=== PATIENT | female | born 1960 | race African-American/Black ===

== ENCOUNTER 2020-10-16 10:27 | Outpatient (REF) | payer OTHER, SELFPAY ==
--- NOTE | ~2020-10-16 | US_ITS ---
EXAMINATION: ULTRASOUND PELVIS AND TRANSVAGINAL CLINICAL INFORMATION: Lower abdominal pain and cramping. COMPARISON: None TECHNIQUE: Transabdominal and transvaginal imaging of pelvis is performed. FINDINGS: The uterus is anteverted and anteflexed measuring 5.2 cm in length, 2.5 cm in AP and 4.0 cm in transverse dimension. The uterus is slightly heterogenous but no focal lesion seen. The endometrial thickness is 0.4 cm. There is small anechoic cyst within the endometrial canal. Small nabothian anechoic cysts are seen in cervix. The right ovary measures 2.2 x 1.0 x 1.6 cm and volume 1.8 mL and appears unremarkable. Previously right ovary measured 0.9 x 1.0 x 1.4 cm. The left ovary is not seen. There is small amount of free fluid in the cul-de-sac. US/US pelvic and transvaginal IMPRESSION: Small nabothian cyst is seen in the cervix. Heterogenous appearance of uterus with minimal fluid in the endometrial canal. The right ovary is unremarkable. The left ovary is not seen.
== END 2020-10-16 10:28 | disposition home or self-care (01) ==
LOC: HO.US 10:27
PROVIDERS: Visit Provider Internal Medicine
DX: R10.30 Lower abdominal pain, unspecified (principal)
CPT/HCPCS: 76830; 76856

== ENCOUNTER 2020-11-01 08:32 | Outpatient (REF) | payer OTHER, SELFPAY ==
--- NOTE | ~2020-11-01 | XR_ITS ---
EXAMINATION: XR FOOT, LEFT CLINICAL INFORMATION: Pain left foot COMPARISON: None TECHNIQUE: AP, lateral, and oblique views of the left foot. FINDINGS: There is no visible acute fracture, dislocation subluxation. The MTP, IP and TMT joints are normal. No bony erosive changes. The ankle mortise and subtalar joints are normal. Small retrocalcaneal and calcaneal heel enthesophytes are seen. XR/XR foot LT min 3V IMPRESSION: Small calcaneal heel and retro calcaneal enthesophytes. No visible acute fracture, dislocation or subluxation seen.
--- NOTE | ~2020-11-01 | XR_ITS ---
EXAMINATION: XR CHEST CLINICAL INFORMATION: Cough COMPARISON: Previous chest x-ray June 2018 TECHNIQUE: 2 views of the chest were obtained. FINDINGS: The cardiac and mediastinal contours are stable. The lungs are clear. There is no pleural effusion or pneumothorax. There are degenerative changes of the spine. XR/XR chest 2V IMPRESSION: Unremarkable examination.
== END 2020-11-01 08:33 | disposition home or self-care (01) ==
LOC: HO.XRAY 08:32
PROVIDERS: PCP Internal Medicine; Visit Provider Internal Medicine
DX: R05 Cough (principal); M79.672 Pain in left foot
CPT/HCPCS: 71046; 73630

== ENCOUNTER 2021-03-14 08:18 | Outpatient (REF) | payer OTHER, SELFPAY ==
--- NOTE | ~2021-03-14 | US_ITS ---
EXAMINATION: US ABDOMEN COMPLETE CLINICAL INFORMATION: Left lower quadrant pain. COMPARISON: X-ray abdomen 03/05/2018. TECHNIQUE: Real-time imaging of the abdominal viscera. FINDINGS: PANCREAS: The pancreas appears atrophic and is only partially visualized due to shadowing from overlying bowel gas. ABDOMINAL AORTA: The proximal, mid, and distal segments are normal in caliber. INFERIOR VENA CAVA: Visualized portions are normal. LIVER: Mildly increased echogenicity of the liver parenchyma with questionable nodularity of the liver contour. There is an equivocal hyperechoic lesion in the left hepatic lobe measuring 9 mm (image 10/92, series 1). No biliary ductal dilatation. GALLBLADDER: The gallbladder is physiologically distended without evidence of stones, sludge, polyps, wall thickening or pericholecystic fluid. COMMON BILE DUCT: Normal in caliber measuring 0.3 cm in diameter. RIGHT KIDNEY: Normal. No hydronephrosis. No renal calculi or focal parenchymal lesions. The kidney measures 9.5 cm in maximum dimension. LEFT KIDNEY: Normal. No hydronephrosis. No renal calculi or focal parenchymal lesions. The kidney measures 10.6 cm in maximum dimension. SPLEEN: Normal. The spleen measures 7.1 cm in maximum dimension. FREE FLUID: None. ADDITIONAL FINDINGS: Additional images were obtained in the left lower quadrant in the area of clinical concern without evidence of acute sonographic abnormalities. US/US abdomen complete IMPRESSION: Increased hepatic echogenicity with questionable nodularity of the liver contour suggesting the presence of hepatic steatosis and/or hepatocellular disease. Question the presence of a hyperechoic lesion in the left hepatic lobe which could be artifactual and related with the imaging plane and technique. Alternatively, a hemangioma could appear similarly. For the above findings, recommend further evaluation with a dynamic liver CT or MR.
== END 2021-03-14 08:19 | disposition home or self-care (01) ==
LOC: HO.US 08:18
PROVIDERS: Visit Provider Internal Medicine
DX: R10.32 Left lower quadrant pain (principal)
CPT/HCPCS: 76700

== ENCOUNTER 2021-04-13 08:27 | Outpatient (REF) | payer OTHER, SELFPAY ==
--- NOTE | ~2021-04-13 | MR_ITS ---
EXAMINATION: MR ABDOMEN WITHOUT AND WITH CONTRAST CLINICAL INFORMATION: Follow up liver lesion seen on ultrasound. COMPARISON: Abdominal ultrasound 03/14/2021 TECHNIQUE: MR abdomen was performed without and with use of 10 mL intravenous Gadavist gadolinium contrast. Postcontrast images are performed in multiphase dynamic sequences. Imaging was performed in 3 planes. FINDINGS: LUNG BASES: The visualized lung bases are unremarkable. LIVER, GALLBLADDER, AND BILIARY TREE: The liver is normal in size, smooth in contour, and normal in signal. No focal hepatic lesion or biliary ductal dilatation is present. The gallbladder is unremarkable with no evidence of gallbladder wall thickening, or obvious pericholecystic inflammatory changes. PANCREAS: Unremarkable. SPLEEN: Normal. ADRENAL GLANDS: Normal. KIDNEYS AND URETERS: The kidneys are normal in size, shape, and enhance symmetrically. No hydronephrosis. No perinephric stranding. GASTROINTESTINAL TRACT: No bowel obstruction. No ascites or fluid collection. ABDOMINAL WALL: There is an umbilical hernia containing fat. LYMPH NODES: No lymphadenopathy. VASCULAR: Unremarkable. OSSEOUS STRUCTURES: Marrow signal normal. MR/MR abdomen wo/w con IMPRESSION: Normal-appearing liver. No liver lesion seen.
== END 2021-04-13 08:28 | disposition home or self-care (01) ==
LOC: HO.MRI 08:27
PROVIDERS: Visit Provider Internal Medicine
DX: K76.89 Other specified diseases of liver (principal)
CPT/HCPCS: 74183; A9585

== ENCOUNTER → 2021-12-05 10:37 | Outpatient (BNVA) | payer MEDICAID, SELFPAY | PROVIDERS: PCP Internal Medicine; Referring Provider Internal Medicine; Visit Provider Internal Medicine Cardiovascular Disease | DX: R07.9 Chest pain, unspecified (principal); R94.31 Abnormal electrocardiogram [ECG] [EKG] | CPT/HCPCS: 93005; 99202 ==

== ENCOUNTER → 2021-12-20 08:46 | Outpatient (REF) | payer MEDICAID, SELFPAY ==
--- NOTE | ~2021-12-20 | NM_ITS ---
EXERCISE MYOCARDIAL PERFUSION STUDY INDICATION: Chest pain, assess for coronary disease and ischemia TECHNIQUE: The patient was brought in for an exercise perfusion study on 12/20/2021. Patient performed exercise as per Jon protocol and was injected 30 mCi of sestamibi once target heart rate was achieved. Images were obtained using the SPECT gamma camera interlaced with the gating device. Images were obtained in supine position. Resting perfusion study was performed on 12/21/2021. Patient was administered 30 mCi of sestamibi intravenously at rest. Images were then obtained in supine position. Total DLP 91mGy-cm. Images were processed with the software and compared side to side in short axis, horizontal long axis and vertical long axis views. FINDINGS: Raw images were reviewed. The stress perfusion study showed no significant perfusion abnormality. Both uncorrected as well as CT attenuation corrected images were reviewed. The gated study shows normal LV systolic function with calculated LVEF of 67%. LV cavity is normal in size. The gated study shows normal wall thickening and contraction of segments. Resting study shows diminished tracer uptake along the inferior wall. There is improvement with CT attenuation correction suggestive of diaphragmatic attenuation artifact. Gating at rest reveals normal wall motion with ejection fraction at 55%. The findings are consistent with no definite reversible or fixed perfusion defects. TN/TN cardiolite stress test IMPRESSION: 1. Myocardial perfusion imaging study shows likely normal myocardial perfusion. 2. Gated LVEF is 67% during stress and 55% during rest. 3. Transient ischemic dilatation not present. EKG component of the test reported separately.
--- NOTE | 2021-12-20 08:51 | CA_ITS ---
Acquisition Time: 2021-12-20 09:41:50 Total Exercise Time: 00:05:00 Test Indications: CP Medications: Protocol: MAXINE Max HR: 144 BPM 90% of Pred: 160 BPM Max BP: 146/078 mmHG Max Work Load: 7.0 METS Exercise stress test with exercise 5 min of Maxine protocol, achieving 90% MPHR, 7 METs with mild sob, no chest discomfort, without arrythmia during exercise with sinus arrythmia noted in recovery, with normotensive response to exercise, without EKG changes meeting criteria for ischemia. Nuclear images pending. Test reviewed with Dr Ramirez Referred By: Joe Lyman Overread By: NATHANIEL CRUZ
== END ==
LOC: HO.CARD 08:46
PROVIDERS: PCP Internal Medicine; Visit Provider Internal Medicine Cardiovascular Disease
DX: R07.9 Chest pain, unspecified (principal)
CPT/HCPCS: 78452; 93017; A9500

== ENCOUNTER → 2021-12-31 13:24 | Outpatient (REF) | payer MEDICAID, SELFPAY ==
--- NOTE | 2021-12-31 13:28 | CA_ITS ---
Transthoracic Echocardiogram Patient (Last, First, Middle): Magali Milner, Gender: Female Date of : 1960 Age: 61 Procedure Date: 12/31/2021 Procedure Type: Transthoracic Echocardiogram Location: OP Height: 170.18 cm Weight: 90.72 kg BSA: 2.02 m2 Heart Rate: 67 bpm BP: 122 / 68 mmHg Gas Analyst: MIAN Referring MD: Joe Lyman MD Record Press Supervisor: Joe Lyman MD Symptoms: R07.9 - Chest pain, unspecified Study Quality: Adequate-low parasternal window ECG Rhythm: Sinus Conclusions: - Normal left ventricular size, thickness, systolic function, and wall motion. The visually estimated ejection fraction is between 55-60%. Diastolic function is normal for age. - Normal right ventricular cavity size and systolic function. Findings Left Ventricle Normal left ventricular size, thickness, systolic function, and wall motion. The visually estimated ejection fraction is between 55-60%. Diastolic function is normal for age. Right Ventricle Normal right ventricular cavity size and systolic function. Atria Both atria are normal in size. Aortic Valve Normal aortic valve structure and function. There is no aortic valve stenosis. There is no aortic valve regurgitation. Mitral Valve Normal mitral valve structure and function. There is no mitral valve regurgitation. There is no mitral valve stenosis. Pulmonic Valve The pulmonic valve is likely normal. Tricuspid Valve Normal tricuspid valve structure and function. There is trace tricuspid valve regurgitation. Tricuspid regurgitation envelope is inadequate for calculation of right ventricular systolic pressure. Normal right atrial pressure. Great Vessels All visible segments of the aorta are normal in size. The visualized portions of the pulmonary artery and branches are normal. Venous The inferior vena cava is normal in size and collapses greater than 50% with inspiration. Pericardium/Pleural There is no evidence of pericardial effusion. Prior Study Comparison No prior study available for comparison. Measurements 2D Linear Measurements IVSd: 0.65 0.6-0.9/0.6-1.0 cm LVIDd: 4.85 3.9-5.3/4.2-5.9 cm LVIDd Index: 2.40 2.4-3.2/2.2-3.1 cm/m2 LVIDs: 3.60 2.0-3.6 cm LVPWd: 0.58 0.7-1.1 cm LA Diam: 3.10 2.7-3.8/3.0-4.0 cm LAIDs Index: 1.53 1.5-2.3 cm/m2 LV Mass: 115.21 67-162/88-224 g LV Mass Index: 57.04 43-95/49-115 g/m2 LVOT Diam: 2.40 3.0+(-)1.3 cm 2D Systolic Function EF 4C: 63.30 >55% EF 2C: 58.60 >55% EF BiP: 61.00 >55% Mitral Valve MV Pk E: 0.94 MV PK A: 0.79 MV Decel Time: 165.00 E/A: 1.20 E'Lateral: 8.49 E'Medial: 8.81 E/E' Med: 10.60 E/E' Lat: 11.00 PHT: 48.00 MVA PHT: 4.58 Decel [place]: 5.66 Aortic Valve AoV Pk Vince: 1.35 AoV Mn Vince: 0.94 AoV VTI: 0.29 AoV Pk Grad: 7.00 Aov Mn Grad: 4.00 MARK Cont.VTI: 3.35 LVOT LVOT Pk Vince: 1.07 LVOT Mn Vince: 0.71 LVOT VTI: 0.22 LVOT Pk Grad: 5.00 LVOT Mn Grad: 3.00 LVOT Diam: 2.40 LVOT Area: 4.52 Diastolic Function MV Pk E: 0.94 MV Pk A: 0.79 E/A: 1.20 E'Medial: 8.81 E/E' Med: 10.60 E' Laterial: 8.49 E/E' Lat: 11.00 Right Ventricle TAPSE (mm): 22.40 TVS' Vince: 12.60 Tricuspid Valve RA Press: 3.00 Great Vessels Aorta Sinus of Valsalva: 3.40 2.0-3.5 cm Ao Asc: 3.10 2.1-3.4 cm Pulmonary Veins Pulm Vein S/D 2.00 Pulmonary Valve PV Pk Vince: 0.92 Peak PV Grad: 3.00 Updated in Other Vendor System with Status of Final Joe Lyman MD electronically signed on 01/02/2022 12:35:01 PM with status of Final
== END ==
LOC: HO.CARD 13:24
PROVIDERS: Visit Provider Internal Medicine Cardiovascular Disease
DX: R07.9 Chest pain, unspecified (principal)
CPT/HCPCS: 93306

== ENCOUNTER → 2022-03-13 15:41 | Outpatient (BNVA) | payer MEDICAID, SELFPAY | PROVIDERS: PCP Internal Medicine; Referring Provider Internal Medicine; Visit Provider Internal Medicine Cardiovascular Disease | DX: R07.9 Chest pain, unspecified (principal); R94.31 Abnormal electrocardiogram [ECG] [EKG] | CPT/HCPCS: 99212 ==

== ENCOUNTER 2022-03-25 15:56 | Outpatient (REF) | payer MEDICAID, SELFPAY ==
--- NOTE | ~2022-03-25 | MM_ITS ---
EXAMINATION: MM SCREENING DIGITAL BREAST TOMOSYNTHESIS, BILATERAL CLINICAL INFORMATION: Screening. Asymptomatic. COMPARISON: Mammography: 03/05/2018, 11/05/2016 TECHNIQUE: Digital breast tomosynthesis is performed in both the craniocaudal and mediolateral oblique views along with computer-aided detection (CAD). Synthesized 2D images are generated from the tomosynthesis. FINDINGS: There are scattered areas of fibroglandular density (ACR BI-RADS breast composition Category b). There are no significant masses, abnormal calcifications, or other abnormalities. Breast tissue composition borders on predominantly fatty. Background stromal and fibroglandular densities are stable. The axilla and skin contours are unremarkable. MM/MM tomosynthesis screening BI IMPRESSION: No mammographic evidence of malignancy. ASSESSMENT: BI-RADS 1: Negative RECOMMENDATION: Routine annual mammography screening. This patient's information was entered into a reminder system with a target due date for their next mammogram.
== END 2022-03-25 15:57 | disposition home or self-care (01) ==
LOC: HO.MAMMO 15:56
PROVIDERS: PCP Internal Medicine; Visit Provider Internal Medicine
DX: Z12.31 Encounter for screening mammogram for malignant neoplasm of breast (principal)
CPT/HCPCS: 77063; 77067

== ENCOUNTER 2022-10-15 12:51 | Outpatient (REF) | payer MEDICAID, SELFPAY ==
--- NOTE | ~2022-10-15 | US_ITS ---
EXAMINATION: US PELVIS CLINICAL INFORMATION: Lower abdominal pain; cervical cyst; postmenopausal patient. COMPARISON: Pelvic ultrasound dated 10/16/2020. TECHNIQUE: Ultrasound of the pelvis is performed using both transabdominal and transvaginal transducers along with Doppler. Transvaginal imaging is performed due to inadequate visualization transabdominally. FINDINGS: Uterus: The uterus is retroverted and measures 5.7 x 2.7 x 3.9 cm. The double wall endometrial thickness is 0.4 mm. The myometrium is heterogeneous. The uterus is smooth in contour and has normal myometrial echogenicity. No visible fibroid. Adnexa: No adnexal mass is seen. There is normal color flow to the adnexa. torsion. There is no pelvic ascites or fluid collection. Right ovary measures 3.4 x 1.0 x 1.7 cm, volume 2.9 mL. Left ovary is not visualized. US/US pelvic and transvaginal IMPRESSION: The left ovary is not visualized. The examination is otherwise unremarkable.
== END 2022-10-15 12:52 | disposition home or self-care (01) ==
LOC: HO.HMGCX 12:51
PROVIDERS: PCP Internal Medicine; Visit Provider Registered Nurse
DX: R10.30 Lower abdominal pain, unspecified (principal)
CPT/HCPCS: 76830; 76856

== ENCOUNTER 2023-03-13 14:06 | Outpatient (REF) | payer MEDICAID, SELFPAY ==
[2023-03-13 14:52] LABS: MANUAL DIFF FLAG NO
[2023-03-13 15:35] LABS: Basophils Percent Auto 0.7 % (0-2); Eosinophils Absolute Auto 0.1 X10*3/uL (0.0-0.4); Imm Gran Abs Auto 0.01 X10*3/uL (0.00-0.03); Imm Gran Pct Auto 0.2 % (0.0-0.4); Lymphocytes Absolute Auto 1.6 X10*3/uL (1.2-4.9); Lymphocytes Percent Auto 28.1 % (20-40); Mean Corpuscular HGB Conc 33.3 g/dl (31.0-35.0); Mean Corpuscular Hemoglobin 28.2 pg (27.0-33.0); Mean Corpuscular Volume 84.5 fL (80.0-98.0); Mean Platelet Volume 10.4 fL (9.4-12.3); Monocytes Absolute Auto 0.6 X10*3/uL (0.1-1.2); Monocytes Percent Auto 10.3 % (2-11); Neutrophils Absolute Auto 3.3 x10*3/uL (2.0-8.3); Neutrophils Percent Auto 58.7 % (45-73); Platelet Count 367 X10*3/uL (160-400); Red Blood Count 4.97 X10*6/uL (4.20-5.50); Red Cell Distribution Width 13.7 % (11.0-16.0); White Blood Count 5.6 X10*3/uL (4.8-10.8)
[2023-03-15 23:02] LABS: TS Negative Control Passed; TS Panel A 3; TS Panel B 1; TS Positive Control Passed; TSpotTB Negative (Negative)
== END 2023-03-13 14:07 | disposition home or self-care (01) ==
LOC: HO.LAB 14:06
PROVIDERS: PCP Internal Medicine; Referring Provider Registered Nurse; Visit Provider Internal Medicine Pulmonary Disease
DX: J45.909 Unspecified asthma, uncomplicated (principal); Z91.09 Other allergy status, other than to drugs and biological substances; Z23 Encounter for immunization; Z86.15 Personal history of latent tuberculosis infection; Z79.899 Other long term (current) drug therapy
CPT/HCPCS: 36415; 82785; 85025; 86003; 86481; 90471; 90686; 99202

== ENCOUNTER 2023-03-13 14:06 | Outpatient (AMB) | payer MEDICAID, SELFPAY ==
--- NOTE | 2023-03-13 14:08 | MHC.OFFVIS ---
Intake Vital Signs 03/13/23 14:10 Height 5 ft 2 in Weight 198 lb 6.656 oz BMI 36.3 BP 122/76 Blood Pressure Location Lt brachial Position Sitting Pulse 78 Pulse Source Pulse Oximeter Pulse Oximetry (%) 97 Oxygen Delivery Method Room Air Intake Visit Reasons: Asthma Intranet Developer Name: son Adult And Pediatric Neurologist: Adult And Pediatric Neurologist offered & declined Allergies No Known Allergies [No Known Allergies*] Allergy (Verified 03/13/23 14:15) Medication List - Last Reconciled 03/13/23 by Donna Tena LPN albuterol sulfate 90 mcg/actuation (Ventolin HFA) 2 puffs inhalation Q6H PRN aspirin (Adult Aspirin Regimen) 81 mg PO DAILY fluticasone propionate 220 mcg/actuation (Flovent HFA) 2 puffs inhalation BID HPI Asthma HPI Details 62-year-old lady, nonsmoker, with no exposure to industrial dust, referred evaluation of pulmonary concerns. Patient states that intermittently through the years she gets bouts of paroxysmal cough, unclear if related to season changes, with no changes through the day. She has been tried on albuterol and Flovent with suboptimal control of her symptoms. Patient denies having pets or seasonal allergies. She does have a history of latent TB treated in 2017 with rifampin. She denies family history of lung disease. Patient does complain of heartburn. [facility] Surgical History (Updated 03/13/22 @ 15:56 by BOBBY Murrieta) History of appendectomy Family History (Updated 03/13/22 @ 15:56 by BOBBY Murrieta) Mother No problems noted. Father Asthma Social History (Updated 03/13/23 @ 14:16 by Donna Tena LPN) Alcohol intake: never Patient Tobacco Use Status: Never used Tobacco Smoked in Last 30 Days: No Review of Systems Const Denies daytime sleepiness, Denies excessive sweating, Denies fatigue, Denies fever(s), Denies lethargy, Denies malaise, Denies night sweats, Denies snoring and Denies weight loss Eyes Denies blurry vision and Denies itchy eyes ENT Denies nasal congestion, Denies post nasal drip, Denies sinus pain, Denies sinus pressure and Denies other ( Thrush) Card Denies chest pain, Denies pedal edema, Denies dyspnea, Denies orthopnea and Denies paroxysmal nocturnal dyspnea Resp Reports cough, Denies hemoptysis, Denies excessive phlegm production, Denies dyspnea, Denies snoring and Denies wheezing GI Denies abdominal pain and Denies heartburn Musc Denies myalgias, Denies arthralgias and Denies joint swelling Skin/Breast Denies rash Neuro Denies memory loss and Denies seizure-like activity Psych Denies abnormal sleep pattern, Denies anxiety and Denies memory loss Endo Denies excessive sweating, Denies fatigue and Denies heat intolerance Raj/Lymph Denies easy bruising Aller/Immun Denies itchy eyes, Denies seasonal rhinorrhea and Denies wheezing Physical Exam Vital Signs: Last Vital Signs Pulse 78 03/13/23 14:10 BP 122/76 03/13/23 14:10 Pulse Ox 97 03/13/23 14:10 Oxygen Delivery Method Room Air 03/13/23 14:10 BMI result Body Mass Index 36.3 Const General: no acute distress and alert Nutritional Appearance: not obese Orientation/consciousness: Other orientation findings ( oriented) HEENT Head: Yes atraumatic Eyes General: appearance normal, both eyes and all related structures Sclerae: sclerae normal EOM: EOMs intact bilaterally Neck Neck: Yes supple Lymphatic: no lymphadenopathy noted Resp Effort & Inspection: normal respiratory effort and no use of accessory muscles Auscultation: clear to auscultation bilaterally Cardio Rate: regular rate Rhythm: regular rhythm Heart sounds: no gallops, no murmurs and no rubs Skin General skin exam: other ( warm) Extrem General: No clubbing, No cyanosis and No edema Assessment & Plan Assessment & Plan (1) History of latent tuberculosis: Code(s): Z86.15 - Personal history of latent tuberculosis infection Plan: Will obtain T spot. (2) Asthma: Code(s): J45.909 - Unspecified asthma, uncomplicated Plan: Will obtain full PFT. Will continue current regimen of Flovent and albuterol MDI until test results are available. (3) Environmental allergies: Code(s): Z91.09 - Other allergy status, other than to drugs and biological substances Plan: Will obtain RAST, CBC with differential, and IgE level of for further evaluation. Orders: Orders Complete Blood Count Auto Diff Today J45.909 - Unspecified asthma, uncomplicated, Z91.09 - Other allergy status, other than to drugs and biological substances Rast Allergen Today Z91.09 - Other allergy status, other than to drugs and biological substances PFT pulmonary function test Today J45.909 - Unspecified asthma, uncomplicated Influenza [id number] Immunization Today Z23 - Encounter for immunization T Spot TB Today Z86.15 - Personal history of latent tuberculosis infection Medications: New flu vacc [id number] 6mos up(PF) 0.5 mL IM ONCE 0.5 mL 0RF Z23 - Encounter for immunization Coding Level of Care Code New Pt Level 4 (70473) Diagnoses History of latent tuberculosis Z86.15 Asthma J45.909 Environmental allergies Z91.09
[2023-03-13 14:10] VITALS: BP 122/76; PULSE 78; O2SAT 97; BMI 36.3
== END 2023-03-13 14:36 | disposition home or self-care (01) ==
PROVIDERS: PCP Internal Medicine; Referring Provider Registered Nurse; Visit Provider Internal Medicine Pulmonary Disease
DX: Z86.15 Personal history of latent tuberculosis infection (principal); J45.909 Unspecified asthma, uncomplicated; Z91.09 Other allergy status, other than to drugs and biological substances; Z23 Encounter for immunization
CPT/HCPCS: 99204

== ENCOUNTER 2023-04-17 15:59 | Outpatient (REF) | payer MEDICAID, SELFPAY ==
--- NOTE | 2023-04-17 17:05 | PFT_ITS ---
Indication: Asthma Spirometry [Is a 1 to FVC 61%; FEV1 1.63 L which is 102% predicted; FVC 2.69 L which is 99% predicted. No significant response to bronchodilators noted. Maximum voluntary ventilation 50% predicted] Lung Volumes [Total lung capacity 74% predicted; expiratory reserve volume 27% predicted] Diffusion Capacity [The patient had difficulties performing the diffusing capacity therefore the results are suboptimal] Comparison [None] Interpretation [There is an obstructive ventilatory defect consistent with COPD. No significant response to bronchodilators noted. There is a moderate decrease in the maximum voluntary ventilation secondary to likely deconditioning. Lung volumes also demonstrate a mild restrictive ventilatory defect. Need to consider underlying parenchymal lung disease and or neuromuscular conditions. The diffusing capacity it cannot be accurately measure. Clinical correlation warranted. MTDD
== END 2023-04-17 16:00 | disposition home or self-care (01) ==
LOC: HO.RESP 15:59
PROVIDERS: PCP Internal Medicine; Visit Provider Internal Medicine Pulmonary Disease
DX: J45.909 Unspecified asthma, uncomplicated (principal)
CPT/HCPCS: 94010; 94727; 94729

== ENCOUNTER 2023-05-01 15:33 | Outpatient (AMB) | payer MEDICAID, SELFPAY ==
[2023-05-01 15:41] VITALS: BP 122/67; PULSE 86; O2SAT 96; BMI 36.1
--- NOTE | 2023-05-01 15:41 | MHC.OFFVIS ---
Intake Vital Signs 05/01/23 15:41 Height 5 ft 2 in Weight 197 lb 5.019 oz BMI 36.1 BP 122/67 Blood Pressure Location Rt brachial Position Sitting Pulse 86 Pulse Source Doppler Pulse Oximetry (%) 96 Oxygen Delivery Method Room Air Intake Visit Reasons: Asthma Allergies No Known Allergies [No Known Allergies*] Allergy (Verified 05/01/23 15:45) HPI Asthma HPI Details 62-year-old lady, nonsmoker, with no exposure to industrial dust, referred evaluation of pulmonary concerns. Patient states that intermittently through the years she gets bouts of paroxysmal cough, unclear if related to season changes, with no changes through the day. She has been tried on albuterol and Flovent with suboptimal control of her symptoms. Patient denies having pets or seasonal allergies. She does have a history of latent TB treated in 2017 with rifampin. She denies family history of lung disease. Patient does complain of heartburn. After the last office visit patient has completed her immunologic testing and pulmonary function test. Patient states that she has been driving no symptomatic improvement on high-dose Flovent. She does complain of significant acid reflux. Her T spot was negative. [facility] Surgical History (Updated 03/13/22 @ 15:56 by BOBBY Murrieta) History of appendectomy Family History (Updated 03/13/22 @ 15:56 by BOBBY Murrieta) Mother No problems noted. Father Asthma Social History Alcohol intake: never Patient Tobacco Use Status: Never used Tobacco Review of Systems Const Denies daytime sleepiness, Denies excessive sweating, Denies fatigue, Denies fever(s), Denies lethargy, Denies malaise, Denies night sweats, Denies snoring and Denies weight loss Eyes Denies blurry vision and Denies itchy eyes ENT Denies nasal congestion, Denies post nasal drip, Denies sinus pain, Denies sinus pressure and Denies other ( Thrush) Card Denies chest pain, Denies pedal edema, Denies dyspnea, Denies orthopnea and Denies paroxysmal nocturnal dyspnea Resp Reports cough, Denies hemoptysis, Denies excessive phlegm production, Denies dyspnea, Denies snoring and Denies wheezing GI Denies abdominal pain and Denies heartburn Musc Denies myalgias, Denies arthralgias and Denies joint swelling Skin/Breast Denies rash Neuro Denies memory loss and Denies seizure-like activity Psych Denies abnormal sleep pattern, Denies anxiety and Denies memory loss Endo Denies excessive sweating, Denies fatigue and Denies heat intolerance Raj/Lymph Denies easy bruising Aller/Immun Denies itchy eyes, Denies seasonal rhinorrhea and Denies wheezing Physical Exam Vital Signs: Last Vital Signs Pulse 86 05/01/23 15:41 BP 122/67 05/01/23 15:41 Pulse Ox 96 05/01/23 15:41 Oxygen Delivery Method Room Air 05/01/23 15:41 BMI result Body Mass Index 36.1 Const General: no acute distress and alert Nutritional Appearance: not obese Orientation/consciousness: Other orientation findings ( oriented) HEENT Head: Yes atraumatic Eyes General: appearance normal, both eyes and all related structures Sclerae: sclerae normal EOM: EOMs intact bilaterally Neck Neck: Yes supple Lymphatic: no lymphadenopathy noted Resp Effort & Inspection: normal respiratory effort and no use of accessory muscles Auscultation: clear to auscultation bilaterally Cardio Rate: regular rate Rhythm: regular rhythm Heart sounds: no gallops, no murmurs and no rubs Skin General skin exam: other ( warm) Extrem General: No clubbing, No cyanosis and No edema Assessment & Plan Assessment & Plan (1) Chronic cough: Code(s): R05.3 - Chronic cough Plan: Appears to have significant acid reflux component. Will start on empiric omeprazole 40 twice a day. Will stop Flovent at this time. (2) History of latent tuberculosis: Code(s): Z86.15 - Personal history of latent tuberculosis infection Plan: Results of T spot reviewed and are negative. No concern for TB reactivation at this time. Medications: New omeprazole 40 mg PO BID 60 caps 6RF 30 days Coding Level of Care Code Est Pt Level 4 (92960) Diagnoses Chronic cough R05.3 History of latent tuberculosis Z86.15
== END 2023-05-01 15:58 | disposition home or self-care (01) ==
PROVIDERS: PCP Internal Medicine; Visit Provider Internal Medicine Pulmonary Disease
DX: R05.3 Chronic cough (principal); Z86.15 Personal history of latent tuberculosis infection
CPT/HCPCS: 99214

== ENCOUNTER → 2023-05-01 15:33 | Outpatient (BNVA) | payer MEDICAID, SELFPAY | PROVIDERS: PCP Internal Medicine; Visit Provider Internal Medicine Pulmonary Disease | DX: R05.3 Chronic cough (principal); Z86.15 Personal history of latent tuberculosis infection | CPT/HCPCS: 99212 ==